=== PATIENT | male | born 1950 | race Caucasian/White ===

== ENCOUNTER 2017-05-24 09:37 | Day surgery (SDC) | payer MEDICARE, MEDICAID ==
[~2017-05-24] VITALS: Ht 188 cm; Wt 50.0 kg
[2017-05-24 10:19] VITALS: BP 123/84
[2017-05-24] MEDS ORDERED: LACTATED RINGERS 1,000 ML IV SCH (10:26)
[2017-05-24] MEDS ORDERED: LIDOCAINE 1%, 2ML SQ PRN (10:30)
[2017-05-24] MEDS ORDERED: LORA0.5T PO (10:30)
[2017-05-24] MEDS ORDERED: HYDR-3245 PO (10:30)
[2017-05-24] MEDS ORDERED: PROPOFOL 10 MG/ML, 20ML ONE (13:02)
[2017-05-24] MEDS ORDERED: ONDANSETRON 2MG/ML, 2ML ONE (13:02)
[2017-05-24] MEDS ORDERED: EPHEDRINE 50 MG/ML, 1ML ONE (13:02)
[2017-05-24] MEDS ORDERED: SUCCINYLCHOLINE 20 MG/ML, 10ML ONE (13:02)
[2017-05-24] MEDS ORDERED: DEXAMETHASONE 4 MG/ML, 1ML ONE (13:02)
[2017-05-24] MEDS ORDERED: FENTANYL PF 100 MCG/2ML ONE (13:04)
[2017-05-24] MEDS ORDERED: ONDANSETRON 2MG/ML, 2ML IVPush PRN (13:30)
[2017-05-24] MEDS ORDERED: EPHEDRINE 50 MG/ML, 1ML IVPush PRN (13:30)
[2017-05-24] MEDS ORDERED: OXYcodone 5 MG/5 ML ORAL.SOL UDC PO PRN (13:30)
[2017-05-24] MEDS ORDERED: ALBUTEROL/IPRATROPIUM 2.5MG/0.5MG, 3 ML NPPB PRN (13:30)
[2017-05-24] MEDS ORDERED: ACETAMINOPHEN 325 MG TABLET PO PRN (13:30)
[2017-05-24] MEDS ORDERED: HYDROmorphone 1 MG/ML, 1ML IV PRN (13:30)
[2017-05-24] MEDS ORDERED: hydrALAzine 20 MG/ML, 1ML IV PRN (13:30)
[2017-05-24] MEDS ORDERED: LABETALOL 5MG/ML, 20ML IV PRN (13:30)
[2017-05-24] MEDS ORDERED: FENTANYL PF 100 MCG/2ML IV PRN (13:30)
[2017-05-24] MEDS ORDERED: PROMETHAZINE 25 MG/ML, 1ML IV PRN (13:30)
[2017-05-24] MEDS ORDERED: MIDAZOLAM 1 MG/ML, 2ML IV PRN (13:30)
[2017-05-24] MEDS ORDERED: OMNIPAQUE 350 MG/ML, 50 ML BOTTLE ONE (14:21)
[2017-05-24] MEDS ORDERED: INDOMETHACIN 50 MG SUPP.RECT PR ONE (14:30)
== END 2017-05-24 16:05 ==
LOC: OUT 09:37
PROVIDERS: ATTEND Internal Medicine Geriatric Medicine
DX: K86.1 Other chronic pancreatitis (principal); K83.8 Other specified diseases of biliary tract; K86.89 Other specified diseases of pancreas
CPT/HCPCS: 43239; 43259; 43274; 74330; 88305; 93005; C1769; C1894; C2625; J0330; J1100; J2405; J2704; J3010; J3490; J7120; Q9967